=== PATIENT | female | born 1930 | race Caucasian/White ===

== ENCOUNTER → 2016-11-21 | Outpatient (CLI) | payer MEDICARE, BC ==
[~2016-11-21] MED LIST: ASPIRIN EC81 M1 PO; ATORVASTATIN CA10 MG PO; BILBERRY500 MG PO; CALCIUM PO; CINNAMON PO; COENZYME PO; EVENING PRIMR1000 MG PO; FLAX SEED OIL1000 M1 PO; GARLIC OIL1000 MG PO; INCRUSE ELLI62.5 MCG INH; LCARNITINE PO; LUTEIN40 MG PO; METFORMIN PO; METOPROLOL TART25 MG PO; MOTRIN600 M1 PO; PROBIOTIC250 MG PO; TRADJENTA5 MG PO; TUMERIC PO; ULTRAM PO; VITAMIN B12 PO; VITAMIN C1000 M2 PO; VITAMIN D1000 UNI1 PO; VITAMIN E400 UNI4 PO
--- NOTE | ~2016-11-21 | US5 ---
[facility] A Service of [facility] & [facility] RADIOLOGY TEXT RESULTS PATIENT: AYAKA ROBERSON LOCATION: [facility] : [birth year] UNIT #: [id number] AGE: [address]: Shadia Thompson DO SEX: F ORDER DR: [id number] [facility] [address] [place], [place] [address] [id number] O MR#: [id number] Acc #: [id number] NAME: AYAKA ROBERSON : 1930 SEX: F STUDY DATE/TIME: 11/21/2016 10:15 UNIT: [facility] ROOM: STUDY DESCRIPTION: US Abdominal Complete Attending Physician: Shadia Thompson D.O. Referring Physician: Shadia Thompson D.O. Ordering Physician: Shadia Thompson D.O. Primary Care Physician: Shadia Thompson D.O. MEDICAL IMAGING REPORT This report is preliminary unless electronic signature is present EXAM Abdominal ultrasound complete 11/21/2016 HISTORY Abdominal pain for 3 weeks. No known injury. Type 2 diabetes, hypertension and hyperlipidemia. FINDINGS The liver is homogeneous in echotexture and demonstrates no cystic or solid mass lesions. The intrahepatic bile ducts are not dilated. The gallbladder contains multiple shadowing gallstones but there is no evidence of gallbladder wall thickening or pericholecystic fluid. The common bile duct is dilated to 9 mm but no obstructing mass or calculus is seen. Clinical correlation is recommended. If there is clinical concern for choledocholithiasis, consider correlation with MRCP. The pancreas and spleen are normal. The spleen measures 8.5 cm in greatest diameter. The visualized portions of the abdominal aorta and inferior vena cava are within normal limits. There is a 6.3 cm simple cyst on the left kidney. The right kidney is normal. IMPRESSION 1. Cholelithiasis. 2. Dilatation of the common bile duct to 9 mm but no obstructing mass or calculus is seen. There is no intrahepatic biliary ductal dilatation. If there is clinical concern for choledocholithiasis, consider correlation with MRCP. 3. Left renal cyst. Dictated by... Niels Dietrich M.D. THIS IS AN ELECTRONICALLY VERIFIED REPORT Niels Dietrich M.D. at 11/22/2016 8:21 AM [facility] A Service of [facility] RADIOLOGY TEXT RESULTS PATIENT: AYAKA ROBERSON LOCATION: [facility] #: [id number] : [birth year] UNIT #: [id number] AGE: [address]: Shadia hTompson DO SEX: F ORDER DR: DIVINE/emilee TD: 11/21/2016 15:40 JOB #: [id number] MEDICAL IMAGING REPORT Page 1 of 1 COPY
== END | disposition home or self-care (01) ==
LOC: CGUS 09:56
DX: R10.9 Unspecified abdominal pain (principal); K80.20 Calculus of gallbladder without cholecystitis without obstruction; K83.8 Other specified diseases of biliary tract; N28.1 Cyst of kidney, acquired
CPT/HCPCS: 76700

== ENCOUNTER → 2016-12-26 | Outpatient (CLI) | payer MEDICARE, BC ==
--- NOTE | ~2016-12-26 | EKG ---
PATIENT: AYAKA ROBERSON UNIT #: [id number] Ventricular Rate: 65 BPM Atrial Rate: 65 BPM P-R Interval: 166 ms QRS Duration: 84 ms Q-T Interval: 408 ms QTC Calculation(Bezet): 424 ms P [place]: 74 degrees Calculated T [place]: 71 degrees Diagnosis Line: Sinus rhythm with Premature atrial complexes Diagnosis Line: Possible Anterior infarct , age undetermined Diagnosis Line: Abnormal ECG Diagnosis Line: No previous ECGs available Diagnosis Line: Confirmed by FREIDA LITTLE MD ([id number]) on Diagnosis Line: 12/26/2016 4:39:56 PM INTERPRETING MD: ANABEL CARDENAS
[2016-12-26 11:35] LABS: HEMATOCRIT 39.9 % (35.0-45.0); HEMOGLOBIN 12.7 gm/dL (12.0-16.0); MEAN CELL VOLUME 85.4 FL (83-96); MEAN CORPUSCULAR HEMOGLOBIN 27.3 PG (28-34); MEAN PLATELET VOLUME 8.1 FL (6.5-11.5); RED BLOOD COUNT 4.67 X10e (3.90-5.30); RED CELL DISTRIBUTION WIDTH 14.6 % (11.0-15.5); WHITE BLOOD COUNT 5.7 X10e3 (4.0-10.5)
[2016-12-26 12:13] LABS: ALBUMIN SERUM 3.9 g/dL (3.5-5.0); BILIRUBIN,TOTAL 0.4 mg/dL (0.2-2.0); BUN/CREATININE RATIO 21.42; CALCIUM SERUM 9.5 mg/dL (8.4-10.2); CREATININE SERUM 0.7 mg/dL (0.6-1.4); GLOM FILT RATE Estimated 77.4 mL/min (>60); POTASSIUM 4.1 mmol/L (3.5-5.1); PROTEIN TOTAL SERUM 6.9 g/dL (6.0-8.3)
== END | disposition home or self-care (01) ==
LOC: CAMB 10:42
PROVIDERS: Specialist
DX: Z01.818 Encounter for other preprocedural examination (principal); K80.20 Calculus of gallbladder without cholecystitis without obstruction
CPT/HCPCS: 36415; 80053; 85027; 93005

== ENCOUNTER → 2017-01-02 | Day surgery (SDC) | payer MEDICARE, BC ==
--- NOTE | ~2017-01-02 | OR ---
Unit #: [id number] #: [id number] Patient: AYAKA ROBERSON [id number] [facility] [address] [place], [place] [address] [id number] O MR#: [id number] NAME: AYAKA ROBERSON ROOM: Date of Procedure: 01/02/2017 Admission Date: 01/02/2017 Surgeon: Sunday Farooq M.D. : 1930 Attending Physician: Sunday Farooq M.D. Primary Care Physician: Shadia Thompson D.O. OPERATIVE REPORT PREOPERATIVE DIAGNOSES Chronic cholecystitis with cholelithiasis. POSTOPERATIVE DIAGNOSES Chronic cholecystitis with cholelithiasis. PROCEDURE PERFORMED Laparoscopic cholecystectomy ANESTHESIA General endotracheal anesthesia. ESTIMATED BLOOD LOSS Less than 20 mL. INDICATIONS FOR PROCEDURE An 86-year-old female, who presented with postprandial nausea and right upper quadrant pain. Ultrasound revealed cholelithiasis. Her common bile duct was noted to be 9 mm, but there was no intrahepatic bile duct dilatation and preoperative liver chemistries were normal and there has been no history of jaundice or pancreatitis. DESCRIPTION OF PROCEDURE The patient was admitted to [facility], positively identified, and transported to the operating room, and after induction of general endotracheal anesthesia, SCDs and an orogastric tube were placed. She received antibiotics per SCIP protocol and she was prepped and draped in usual sterile fashion. A 1 cm incision was made in her previous lower midline scar. I dissected down through the soft tissue, exposed the fascia, opened the fascia and dissected out the peritoneum and opened the peritoneum under direct vision and entered into the peritoneal cavity. A Tracey trocar was able to be placed and secured with 0 Vicryl suture. Pneumoperitoneum was created. The patient was appropriately positioned. Laparoscope was introduced into the peritoneal cavity. Under direct vision, the epigastric and lateral ports were placed. Adhesions to the liver and gallbladder were taken down with sharp and cautery dissection. The gallbladder was grasped and elevated and the infundibulum was identified and retracted laterally. [place] of [place] was dissected out clearly identifying the cystic duct, gallbladder, and cystic duct-common duct junction entering into the common bile duct was well visualized. The posteriorly placed cystic artery was dissected out fully. The cystic duct was small and was swept upwards and a single clip was placed on the cystic Unit #: [id number] #: [id number] Patient: AYAKA ROBERSON duct centered to gallbladder. Through a separate stab incision, a cholangiocatheter was passed into the peritoneal cavity. An incision was made in the cystic duct and several attempts were made to pass the cholangiocatheter, but the duct was too small to accept the catheter at the risk of tearing the cystic duct in half. I abandoned the cholangiogram, placed 3 clips on the distal cystic duct and then completed revision. Posteriorly placed cystic artery was doubly clipped and divided. I then dissected the gallbladder liver bed using cautery dissection. Once it was freed up from its hepatic attachments, it was brought out through the epigastric port. There was good hemostasis. The clips were well positioned. The epigastric fascial defect was closed with the neoClose device, and the closure was airtight. I then removed the laparoscope and trocars and reduced pneumoperitoneum. The Tracey trocar site was closed with 0 Vicryl interrupted sutures. 0.5% Marcaine with epinephrine was infiltrated in each trocar site. The skin was closed with 4-0 Monocryl subcuticular closure and Dermabond skin adhesive. Sponges and needle counts were correct x3. The patient tolerated the procedure well and transported to recovery in stable condition. Findings and postoperative instructions were discussed with her family. Dictated by... Glenny Cruz/piedad TD: 01/03/2017 00:05 JOB #: [id number] OPERATIVE REPORT Page 1 of 1 X Sunday Farooq MD PROCEDURE OPERATIVE NOTE
== END | disposition home or self-care (01) ==
LOC: CSUR 05:47
PROVIDERS: Specialist
PROC: 0FT44ZZ Resection of Gallbladder, Percutaneous Endoscopic Approach (ICD-10-PCS; principal; 2017-01-02 07:30)
DX: K80.10 Calculus of gallbladder with chronic cholecystitis without obstruction (principal); K83.8 Other specified diseases of biliary tract; E11.9 Type 2 diabetes mellitus without complications; Z79.84 Long term (current) use of oral hypoglycemic drugs; E78.5 Hyperlipidemia, unspecified; J44.9 Chronic obstructive pulmonary disease, unspecified; K57.30 Diverticulosis of large intestine without perforation or abscess without bleeding; N28.1 Cyst of kidney, acquired; K90.0 Celiac disease; M85.80 Other specified disorders of bone density and structure, unspecified site; E53.8 Deficiency of other specified B group vitamins; F41.9 Anxiety disorder, unspecified; M62.838 Other muscle spasm; R20.9 Unspecified disturbances of skin sensation; R09.89 Other specified symptoms and signs involving the circulatory and respiratory systems; Z79.82 Long term (current) use of aspirin; Z79.899 Other long term (current) drug therapy; Z90.710 Acquired absence of both cervix and uterus; Z87.09 Personal history of other diseases of the respiratory system; Z87.01 Personal history of pneumonia (recurrent); Z98.890 Other specified postprocedural states; Z88.8 Allergy status to other drugs, medicaments and biological substances
CPT/HCPCS: 82947; 88304; J0330; J0690; J1610; J2405; J2550; J2710; J3010

== ENCOUNTER → 2017-02-08 | Outpatient (CLI) | payer MEDICARE, BC ==
[2017-02-08 11:28] LABS: HEMATOCRIT 38.6 % (35.0-45.0); HEMOGLOBIN 12.5 gm/dL (12.0-16.0); MEAN CELL VOLUME 84.3 FL (83-96); MEAN CORPUSCULAR HEMOGLOBIN 27.2 PG (28-34); MEAN CORPUSCULAR HGB CONC 32.3 g/dL (30-36); MEAN PLATELET VOLUME 7.3 FL (6.5-11.5); RED BLOOD COUNT 4.58 X10e (3.90-5.30); RED CELL DISTRIBUTION WIDTH 14.7 % (11.0-15.5); WHITE BLOOD COUNT 7.6 X10e3 (4.0-10.5)
[2017-02-08 11:58] LABS: BILIRUBIN,TOTAL 0.4 mg/dL (0.2-2.0); BUN/CREATININE RATIO 24.28; CALCIUM SERUM 9.6 mg/dL (8.4-10.2); CREATININE SERUM 0.7 mg/dL (0.6-1.4); GLOM FILT RATE Estimated 77.4 mL/min (>60); PROTEIN TOTAL SERUM 7.2 g/dL (6.0-8.3)
== END | disposition home or self-care (01) ==
LOC: CLAB 11:09
PROVIDERS: Specialist
DX: R10.9 Unspecified abdominal pain (principal)
CPT/HCPCS: 36415; 80053; 82150; 85027